=== PATIENT | female | born 1945 | race Caucasian/White ===

== ENCOUNTER → 2016-12-17 | Outpatient (CLI) | payer MEDICARE, OTHER | END | disposition home or self-care (01) | LOC: GMAM 13:13 | PROVIDERS: ATTEND Family Medicine | DX: J30.5 Allergic rhinitis due to food (principal); J30.9 Allergic rhinitis, unspecified; R21 Rash and other nonspecific skin eruption; D34 Benign neoplasm of thyroid gland; M79.7 Fibromyalgia ==

== ENCOUNTER → 2017-11-16 | Outpatient (CLI) | payer MEDICARE, OTHER | LOC: LAB.O 11:05 | PROVIDERS: ATTEND Internal Medicine Gastroenterology | DX: R19.7 Diarrhea, unspecified (principal) ==

== ENCOUNTER → 2017-11-24 | Outpatient (CLI) | payer MEDICARE, OTHER | LOC: LAB.O 11:31 | PROVIDERS: ATTEND Internal Medicine Gastroenterology | DX: R19.7 Diarrhea, unspecified (principal) ==

== ENCOUNTER → 2017-12-21 | Outpatient (CLI) | payer MEDICARE, OTHER ==
--- NOTE | 2017-12-22 11:12 | MRI ---
EXAM DESCRIPTION: Lumbar Spine w/o Contrast : Magnetic Resonance Imaging. CLINICAL HISTORY: M48.06 COMPARISON: None. TECHNIQUE: Multiplanar, multiple standard sequences, non contrast MRI, lumbar spine. FINDINGS: L5-S1: Minimal disc desiccation. Disc space preserved. Minimal bulge to the left of midline abutting the thecal sac. Mild canal narrowing. Mild bilateral foraminal foraminal narrowing. Minimal effusion in the left facet joint. L4-5: Moderate disc space loss and diffuse Modic type II endplate reactive changes more in the midline into the right of midline. Disc spur complex encroaching on the right soft tissues and foramen with borderline stenosis. Mild left foraminal narrowing. Posterior disc osteophyte bulge into the canal with moderate narrowing. Bilateral flavum ligament hypertrophy. L3-4: Minimal disc desiccation. Trace anterior bulging. Flavum ligament hypertrophy. Mild canal narrowing. Posterior elements otherwise unremarkable. Bilateral foramina are patent. L2-3: Disc desiccation anterior bulging and endplate ridging. Anterior Modic type II endplate reactive changes. Posterior elements unremarkable. No posterior bulging. Canal and foramina are patent. L1-2: Normal signal in the disc with disc space preserved. Posterior elements unremarkable. Canal and foramina are patent. T12-L1: Disc space preserved with normal signal in the disc. Posterior elements unremarkable. Canal and foramina are patent. Conus terminates at this level. Normal signal in the cord. Well-circumscribed hyperintense T1 and T2 signal superior T12 vertebral body abutting the endplate, consistent with a hemangioma. No significant scoliosis, but trace kyphosis upper spine. Paravertebral soft tissues minimal muscle atrophy.. Otherwise normal marrow signal in the remaining vertebral bodies and the posterior elements. Vertebral bodies are not compressed at any level. IMPRESSION: 1. Moderate spondylosis L4-5 more in the midline into the right of midline than the left with right side disc space narrowing more advanced. Borderline right foraminal stenosis. Correlate for right L4 radiculopathy. 2. Desiccated discs at other levels. No canal or foraminal stenosis at other levels. Minimal facet arthrosis and flavum ligament hypertrophy at other levels. Electronically signed by: Onofre Muro MD 12/22/2017 11:11 AM [employer]
== END ==
LOC: MRI 13:00
PROVIDERS: ATTEND Family Medicine
DX: M47.27 Other spondylosis with radiculopathy, lumbosacral region (principal); M51.36 Other intervertebral disc degeneration, lumbar region

== ENCOUNTER → 2018-09-25 | Outpatient (CLI) | payer MEDICARE, OTHER ==
--- NOTE | 2018-09-26 21:00 | MAM ---
EXAM DESCRIPTION: 3D Screening BILATERAL : Digital Mammography. CLINICAL HISTORY: 73 years Female SCREEN . No complaints and no personal history of breast cancer. Remote family history of ovarian cancer but not breast cancer. Childbirth. Postmenopausal. HRT 5 or more years ago. Prior benign left breast biopsy.. Lifetime risk of developing breast cancer (Tyrer-Cuzick model)(%): 5.4. COMPARISON: Bilateral screening digital breast tomosynthesis 09/15/2017. Bilateral diagnostic breast tomosynthesis and targeted breast ultrasound 09/26/2017. TECHNIQUE: Bilateral CC and MLO projection full-field images, digital tomosynthesis mammographic technique. Bilateral digital 2-D full-field MLO images. CAD not available for tomosynthesis or 2-D images. FINDINGS: The breast parenchymal density pattern is: Scattered areas of fibroglandular density. No skin thickening or nipple retraction. Bilateral axillary lymph nodes are again seen larger on the right. Bilateral solitary microcalcifications. No new focal, stellate mass or density, focal asymmetry , and no suspicious microcalcifications bilaterally. Stable mammograms compared to prior study. IMPRESSION: Benign exam. BIRAD CATEGORY: 2 BENIGN FINDINGS. RECOMMENDATIONS: FOLLOW UP: Routine digital bilateral mammographic screening, one year interval from September 2018. Written communication explaining the IMPRESSION and follow-up, will be mailed to the patient and referring health care provider. According to the [employer], yearly mammograms are recommended starting at age 40 and continuing as long as a woman is in good health. Any breast change noted on a breast self-exam should be reported promptly to the patient's healthcare provider. Breast MRI is recommended for women with an approximately 20-25% or greater lifetime risk of breast cancer, including women with a strong family history of breast or ovarian cancer and women who have been treated for Hodgkin's disease. A negative mammographic report should not delay tissue diagnosis in patients with significant clinical history or physical findings. Extremely dense breast tissue limits the sensitivity of digital mammography. Electronically signed by: Onofre Muro MD 09/26/2018 8:59 PM CDT
== END ==
LOC: MAMMO 11:16
PROVIDERS: ATTEND Family Medicine
DX: Z12.31 Encounter for screening mammogram for malignant neoplasm of breast (principal); D34 Benign neoplasm of thyroid gland; E55.9 Vitamin D deficiency, unspecified; I11.0 Hypertensive heart disease with heart failure; I50.9 Heart failure, unspecified

== ENCOUNTER → 2018-10-17 | Outpatient (CLI) | payer MEDICARE, OTHER ==
--- NOTE | 2018-10-18 08:23 | US ---
EXAM DESCRIPTION: Gall Bladder: ULTRASOUND. CLINICAL HISTORY: RUQ PAIN COMPARISON: Abdomen radiograph 10/02/2018. TECHNIQUE: Transabdominal scanning: Gutierrez-scale and Doppler modes. FINDINGS: Gallbladder: normal size, shape, echogenicity; no intraluminal stones or sludge. No fluid around the gallbladder. No wall thickening. 2.6 mm Non-tender with transducer pressure. Common bile duct: caliber 4.1 mm within normal limits. Liver: normal echogenicity; contour liver capsule smooth where seen. No fluid around the liver. Intrahepatic biliary ducts normal caliber. Doppler hepatopedal flow portal vein.. Long axis right lobe 13.7 cm. Pancreas: normal size and echogenicity. Duct not seen. Aorta: 2.4 x 2.0 cm proximal segment, with atherosclerotic changes. Right kidney: 10.6 cm long axis. Normal cortical thickness and echogenicity. No echogenic stones, no hydronephrosis, no perirenal fluid.. IMPRESSION: No ultrasound abnormalities in the right upper quadrant of the abdomen to explain right upper quadrant pain. No ascites. Electronically signed by: Onofre Muro MD 10/18/2018 8:22 AM CDT
== END ==
LOC: US 08:00
PROVIDERS: ATTEND Family Medicine
DX: R10.11 Right upper quadrant pain (principal)

== ENCOUNTER → 2018-10-19 | Outpatient (CLI) | payer MEDICARE, OTHER ==
--- NOTE | 2018-10-20 08:49 | CT ---
EXAM DESCRIPTION: Lung Screen Low Dose CLINICAL HISTORY: 73 years Female, PERSONAL HISTORY OF NICOTINE DEPENDENCE COMPARISON: None. TECHNIQUE: Low-dose noncontrast thin section CT of the chest with MIP reformatted images. This exam was performed according to our departmental dose-optimization program, which includes automated exposure control, adjustment of the mA and/or kV according to patient size and/or use of iterative reconstruction technique. FINDINGS: Thin section axial images demonstrate diminished pulmonary markings in the upper lung garza consistent with an element of centrilobular emphysema without significant bullous disease. There is mild linear thickening along the lateral aspect of the left major fissure inferiorly. A small granulomatous calcification in the posterior segment of the right upper lobe benign in appearance is noted. Moderately extensive aortic and vascular calcification as well as bronchial wall calcification is noted without evidence of endobronchial lesion or obstruction. The thoracic inlet and superior mediastinum as well as the middle mediastinum and hilum are grossly unremarkable on noncontrast imaging. The upper abdomen in the infra diaphragmatic region is normal. No dominant pulmonary mass or evidence of significant noncalcified pulmonary nodules to suggest old inflammatory or granulomatous or metastatic disease otherwise is seen. No pleural effusions or consolidation or acute infiltrates noted. Minimal S-shaped scoliosis of the spine is apparent, convex to the left superiorly and to the right inferiorly within the chest IMPRESSION: 1. Solitary approximate 3 mm calcified granuloma posterior segment right upper lobe and moderate vascular and bronchial wall calcification. Mild apical emphysematous changes without bullous disease. Mild thickening of the left major fissure at the anterior lung base consistent with old inflammatory disease. Lung Rads Category 1 - No nodule or definitely benign nodules (probability of malignancy less than 1%). Follow-up: Continue annual screening with Low Dose Chest CT in 12 months. Electronically signed by: Tra Padilla MD 10/20/2018 8:47 AM CDT
== END ==
LOC: CT 11:06
PROVIDERS: ATTEND Family Medicine
DX: Z87.891 Personal history of nicotine dependence (principal); R91.8 Other nonspecific abnormal finding of lung field; R10.11 Right upper quadrant pain

== ENCOUNTER → 2019-08-13 | Outpatient (CLI) | payer MEDICARE, OTHER ==
--- NOTE | 2019-08-13 09:13 | MRI ---
Study: MRI of the Right Shoulder. Indication: PAIN IN RIGHT UPPER ARM Technique: Multiplanar, multi sequence MRI of the right shoulder was obtained without intravenous contrast. Comparison: None. Findings: Mild to moderate AC joint osteoarthritis. Type I acromion with moderate lateral downsloping. Moderate volume subacromial subdeltoid bursal fluid. Full-thickness, fullwidth supraspinatus tendon tearing with high-grade articular tearing anterior two thirds infraspinatus tendon insertion. Torn tendon fibers retracted to the level of the midline humeral head. Subscapularis tendinosis. Teres minor tendon intact. Intracapsular long head biceps tendinosis. Minimal atrophy and grade 1 fatty infiltration rotator cuff musculature. Circumferential labral truncation/degeneration. Mild glenohumeral joint osteoarthritis with a small joint effusion. No acute fracture. Impression: Full-thickness, fullwidth supraspinatus tendon tear with high-grade articular tearing anterior two thirds infraspinatus tendon insertion. Subscapularis tendinosis. Intracapsular long head biceps tendinosis. Minimal atrophy and grade 1 fatty infiltration rotator cuff musculature. Circumferential labral truncation and degeneration. Mild glenohumeral joint osteoarthritis with small joint effusion. Mild/moderate AC joint osteoarthritis. Electronically signed by: Hank Hess MD 08/13/2019 9:12 AM CDT
== END ==
LOC: MRI 07:46
PROVIDERS: ATTEND Family Medicine
DX: M75.101 Unspecified rotator cuff tear or rupture of right shoulder, not specified as traumatic (principal); M75.91 Shoulder lesion, unspecified, right shoulder; M75.21 Bicipital tendinitis, right shoulder; M62.511 Muscle wasting and atrophy, not elsewhere classified, right shoulder; S43.431A Superior glenoid labrum lesion of right shoulder, initial encounter; M19.011 Primary osteoarthritis, right shoulder; M25.411 Effusion, right shoulder

== ENCOUNTER → 2019-08-17 | Outpatient (CLI) | payer MEDICARE, OTHER | LOC: GMAM 13:35 | PROVIDERS: ATTEND Family Medicine | DX: R19.7 Diarrhea, unspecified (principal) ==

== ENCOUNTER → 2019-09-06 | Outpatient (CLI) | payer MEDICARE, OTHER ==
--- NOTE | 2019-09-06 13:52 | RAD ---
4 radiographs right shoulder Indication: SHOULDER PAIN RIGHT Comparison: None Impression: A.C. and glenohumeral joint alignment normal without acute fracture or dislocation. Mild to moderate AC joint osteoarthritis. Minimal glenohumeral joint osteoarthritis. Mild lateral downsloping acromion. Electronically signed by: Hank Hess MD 09/06/2019 1:50 PM CDT
== END ==
LOC: RAD 08:31
PROVIDERS: ATTEND Orthopaedic Surgery
DX: M19.011 Primary osteoarthritis, right shoulder (principal); M21.921 Unspecified acquired deformity of right upper arm

== ENCOUNTER → 2019-09-17 | Outpatient (CLI) | payer MEDICARE, OTHER | LOC: LAB.O 10:28 | PROVIDERS: ATTEND Orthopaedic Surgery | DX: Z01.818 Encounter for other preprocedural examination (principal) ==

== ENCOUNTER → 2019-10-12 | Outpatient (CLI) | payer MEDICARE, OTHER ==
--- NOTE | 2019-10-16 16:26 | MAM ---
EXAM DESCRIPTION: 3D Screening BILATERAL : Digital Mammography. CLINICAL HISTORY: 74 years Female ANNUAL SCREENING no complaints. Remote family history of breast cancer. Menarche age 13. Childbirth age 23. Menopause age 34. HRT 5 or more years ago. Benign left breast cyst aspiration and biopsy. Lifetime risk of developing breast cancer (Tyrer-Cuzick model)(%): 7.2. COMPARISON: Bilateral screening digital breast tomosynthesis September 2018 and September 2017. TECHNIQUE: Bilateral CC and MLO projection full-field images, digital tomosynthesis mammographic technique. Bilateral digital 2-D full-field MLO images. and CC images. CAD available for 2-D images. FINDINGS: The breast parenchymal density pattern is: Scattered areas of fibroglandular density. No skin thickening or nipple retraction. Bilateral skin mole markers. Solitary microcalcifications. Axillary lymph nodes. No new focal, stellate mass or density, focal asymmetry , and no suspicious microcalcifications bilaterally. Stable mammograms compared to prior study. IMPRESSION: Benign exam. BIRAD CATEGORY: 2 BENIGN FINDINGS. RECOMMENDATIONS: FOLLOW UP: Routine digital bilateral mammographic screening, one year interval from October 2019. Written communication explaining the IMPRESSION and follow-up, will be mailed to the patient and referring health care provider. According to the [employer], yearly mammograms are recommended starting at age 40 and continuing as long as a woman is in good health. Any breast change noted on a breast self-exam should be reported promptly to the patient's healthcare provider. Breast MRI is recommended for women with an approximately 20-25% or greater lifetime risk of breast cancer, including women with a strong family history of breast or ovarian cancer and women who have been treated for Hodgkin's disease. A negative mammographic report should not delay tissue diagnosis in patients with significant clinical history or physical findings. Extremely dense breast tissue limits the sensitivity of digital mammography. Electronically signed by: Onofre Muro MD 10/16/2019 4:24 PM CDT
== END ==
LOC: MAMMO 10:55
PROVIDERS: ATTEND Family Medicine
DX: Z12.31 Encounter for screening mammogram for malignant neoplasm of breast (principal)

== ENCOUNTER 2019-10-16 05:16 | Day surgery (SDC) | payer MEDICARE, OTHER ==
[2019-10-16] MEDS ORDERED: SODIUM CHL 0.9% 100ML MINI-BAG 100 ML IVPB ONE (06:42)
[2019-10-16] MEDS ORDERED: ceFAZolin SODIUM 1 GM VIAL ONE (06:42)
[2019-10-16] MEDS ORDERED: LACTATED RINGERS 1,000 ML ONE (06:42)
[2019-10-16] MEDS ORDERED: KETAMINE HCL 100 MG/ML VIAL ONE (09:59)
[2019-10-16] MEDS ORDERED: FAMOTIDINE 10 MG/ML ML IV ONE (09:59)
[2019-10-16] MEDS ORDERED: fentaNYL CITRATE INJ 50 MCG/ML AMP ONE (09:59)
[2019-10-16] MEDS ORDERED: MIDAZOLAM INJ 2 MG/2 ML VIAL ONE (09:59)
[2019-10-16] MEDS ORDERED: ePHEDrine SULF 50 MG/ML IV ONE (10:00)
[2019-10-16] MEDS ORDERED: PROPOFOL 200 MG/20 ML VIAL IV ONE (10:00)
[2019-10-16] MEDS ORDERED: DEXAMETHASONE INJ 10 MG/ML VIAL IV ONE (10:00)
[2019-10-16] MEDS ORDERED: MAGNESIUM SULFATE INJ 1 GM/2 ML VIAL IVPB ONE (10:00)
[2019-10-16] MEDS ORDERED: LIDOCAINE 1% 10 ML VIAL INJ ONE (10:00)
[2019-10-16 10:53] VITALS: O2SAT 100
[2019-10-16] MEDS: BUPIVACAINE LIPOSOME 13.3 MG/ML VIAL INJ ONE ×2 (11:52→12:11)
[2019-10-16] MEDS: BUPIVACAINE 0.5% 30 ML VIAL INJ ONE ×2 (11:52→12:11)
[2019-10-16] MEDS: ceFAZolin SODIUM 1 GM VIAL ONE ×2 (11:52→12:10)
[2019-10-16] MEDS: VANCOMYCIN HCL INJ 1,000 MG VIAL IVPB ONE ×2 (11:53→12:10)
[2019-10-16] MEDS: LABETALOL INJ 5 MG/ML VIAL ONE ×2 (12:38→12:43)
[2019-10-16] MEDS ORDERED: LORazepam 1 MG TAB ONE (13:14)
[2019-10-16] MEDS ORDERED: LORazepam 0.5 MG TAB ONE (13:17)
[2019-10-16] MEDS ORDERED: LORazepam 1 MG TAB PO ONE ×2 (13:20→13:35)
[2019-10-16 15:08] VITALS: BP 141/86; TEMP 98.7
--- NOTE | 2019-10-23 08:16 | OP ---
DATE OF PROCEDURE: 10/16/19 PREOPERATIVE DIAGNOSIS: 1. Right rotator cuff tear. POSTOPERATIVE DIAGNOSIS: 1. Right rotator cuff tear. PROCEDURE: 1. Rotator cuff repair. SURGEON: Junior Johnson MD. CEILING INSTALLER: Onofre Tenorio CST, SA-C. ANESTHESIA: General anesthesia. COMPLICATIONS: None. FINDINGS: Tear of the supraspinatus at the anterior edge to about the mid portion posteriorly. INDICATION: Ms. Mendez has a history of severe pain that has been refractory to conservative measures and has been causing her difficulty with daily activities. She has had conservative measures, however, has failed to gain relief. Because of her ongoing pain, she has requested operative intervention. After discussing the risks, benefits and alternatives to operative intervention, the patient has given informed consent for rotator cuff repair. PROCEDURE: The patient was brought to the Operating Room and placed in the supine position. General anesthesia was induced and the patient was transitioned into the beach chair position. Following transitioning into the beach chair position, the arm and shoulder were sterilely prepped and draped. Following prepping and draping, an incision was made at the lateral border of the acromion. Full thickness skin flaps were developed and a split was made between the anterior and middle heads of the deltoid. A bursectomy was performed followed by an acromioplasty and the rotator cuff was identified and examined. The aforementioned tear was noted. The tendon end was debrided. The area of the tendon footprint was decorticated and a repair was performed using a [employer] construct. The arm was taken through a range of motion and there did not appear to be any undue tension on the repair. The wound was very thoroughly irrigated and the deltoid was reapproximated. The skin was closed with a combination of running and interrupted subcuticular stitches. Sterile dressings were placed. The patient was placed in a sling and taken to Recovery Room. POSTOPERATIVE PLAN: She will remain in the sling until followup with us in two days. She will begin passive range of motion at that time. #[id number] MTDD
== END 2019-10-16 14:45 | disposition home or self-care (01) ==
LOC: AMB 05:16
PROVIDERS: ATTEND Orthopaedic Surgery
DX: M75.101 Unspecified rotator cuff tear or rupture of right shoulder, not specified as traumatic (principal); I10 Essential (primary) hypertension; F41.9 Anxiety disorder, unspecified; M81.0 Age-related osteoporosis without current pathological fracture; Z79.899 Other long term (current) drug therapy; Z88.6 Allergy status to analgesic agent; Z88.5 Allergy status to narcotic agent; Z88.8 Allergy status to other drugs, medicaments and biological substances; Z88.2 Allergy status to sulfonamides
CPT/HCPCS: 01610; 23410; 80307; J0690; J1100; J2250; J3010; J3370; J3475; J3490; J7050; J7120

== ENCOUNTER 2020-02-05 13:17 | Outpatient (CLI) | payer MEDICARE, OTHER | END 2020-02-05 16:49 | disposition home or self-care (01) | LOC: INFRM 13:17 | PROVIDERS: ATTEND Family Medicine | DX: U07.1 COVID-19 (principal); I10 Essential (primary) hypertension; Z23 Encounter for immunization ==

== ENCOUNTER → 2020-02-19 | Outpatient (CLI) | payer MEDICARE, OTHER ==
--- NOTE | 2020-02-19 15:23 | RAD ---
EXAM DESCRIPTION: Chest,2 Views CLINICAL HISTORY: COVID 19 COMPARISON: None available FINDINGS: The cardiac silhouette is slightly enlarged. Subsegmental atelectasis or scarring in the lung bases, no airspace consolidation or pleural effusion. The lung volumes are within normal range. There is no pneumothorax or acute fracture. IMPRESSION: Subsegmental atelectasis or scarring the lung bases, no radiographic evidence of pneumonia. Cardiomegaly. Electronically signed by: Colby Diallo MD 02/19/2020 3:21 PM [facility]
--- NOTE | 2020-02-19 15:24 | RAD ---
EXAM DESCRIPTION: Bilateral Ribs CLINICAL HISTORY: RUQ PAIN COMPARISON: None available FINDINGS: Four views of the bilateral ribs show no displaced left or right-sided rib fracture. Probable subsegmental atelectasis or scarring in the lung bases. No pneumothorax. IMPRESSION: No radiographically apparent rib fracture. Electronically signed by: Colby Diallo MD 02/19/2020 3:22 PM [facility]
== END ==
LOC: GMAM 11:58
PROVIDERS: ATTEND Family Medicine
DX: U07.1 COVID-19 (principal); R10.11 Right upper quadrant pain; R91.8 Other nonspecific abnormal finding of lung field; I51.7 Cardiomegaly